=== PATIENT | female | born 1980 | race Caucasian/White ===

== ENCOUNTER 2021-02-15 13:06 | Emergency (ER) | payer OTHER ==
[2021-02-15 14:18] VITALS: BP 126/79; PULSE 72; TEMP 97.9; BMI 29.2
[2021-02-15] MEDS ORDERED: KETOROLAC TROMETHAMINE 30 MG/1 ML VIAL IM ONE (15:01)
== END 2021-02-15 16:02 | disposition home or self-care (01) ==
LOC: JER 13:06
PROC: 3E0233Z Introduction of Anti-inflammatory into Muscle, Percutaneous Approach (ICD-10-PCS; principal; 2021-02-15)
DX: S13.4XXA Sprain of ligaments of cervical spine, initial encounter (principal); M54.50 Low back pain, unspecified; V89.2XXA Person injured in unspecified motor-vehicle accident, traffic, initial encounter; Y92.9 Unspecified place or not applicable
CPT/HCPCS: 99283-25

== ENCOUNTER 2021-06-27 23:02 | Emergency (ER) | payer SELFPAY ==
[2021-06-27 23:07] VITALS: BP 98/66; PULSE 71; TEMP 97; BMI 28.3
== END 2021-06-28 00:40 | disposition home or self-care (01) ==
LOC: JER 23:02
DX: R10.2 Pelvic and perineal pain (principal)
CPT/HCPCS: 99282-25

== ENCOUNTER 2022-07-09 20:03 | Emergency (ER) | payer OTHER ==
[2022-07-09 20:15] VITALS: BP 128/67; PULSE 75; RESP 18; TEMP 98.2; BMI 25.0
[2022-07-09] MEDS ORDERED: IBUPROFEN 400 MG TABLET (FP) PO ONE ×2 (21:13→21:47)
[2022-07-09] MEDS ORDERED: LIDOCAINE 5% TOPICAL PATCH TP ONE (21:14)
[2022-07-09] MEDS ORDERED: LIDOCAINE 5% TOPICAL PATCH ONE (21:47)
[2022-07-09] MEDS ORDERED: LIDOCAINE PATCH REMOVAL MC SCH (22:00)
== END 2022-07-10 02:21 | disposition home or self-care (01) ==
LOC: JER 20:03
DX: R51.9 Headache, unspecified (principal); M54.2 Cervicalgia; M25.511 Pain in right shoulder; W22.8XXA Striking against or struck by other objects, initial encounter
CPT/HCPCS: 72125-TC; 99284-25